=== PATIENT | female | born 1980 | race African-American/Black ===

== ENCOUNTER 2018-01-13 06:11 | Day surgery (SDC) | payer OTHER ==
[2018-01-13 07:28] VITALS: BMI 21.0
--- NOTE | 2018-01-13 07:32 | HP ---
Admitting History and Physical - Admission History of Present Illness: Patient is 37 y/o female with a past medical history of SLE, pancreatic insufficiency, sjoogrens disease, GERD, migraines, chronic pain, IBS, endometrosis, anxiety and depression. Patient was recently admitted to [facility] psychiatric unit for suicidal ideation and discharged on 01/05/18. Patient received 7 ECT during her inpatient stay at [place]. She has been referred by her psychiatrist to [facility] for continuation of her ECT. Patient reports ongoing depressive feelings, she denies any suicidal or homicidal ideation, visual or auditory hallucinations. Patient reports compliance with prescribed medications. History Source: Patient, Friend, Medical Record Limitations to Obtaining History: No Limitations - Past Medical History Gastrointestinal: Yes: GERD, Inflamatory Bowel Disease ...LMP: 01/10/18 ...: No Rheumatology: Yes: Lupus - Smoking History Smoking history: Current every day smoker Have you smoked in the past 12 months: Yes Aproximately how many cigarettes per day: 2 - Alcohol/Substance Use Hx Alcohol Use: Yes (RARELY) History of Substance Use: reports: Marijuana - Social History Usual Living Arrangement: Yes: Alone ADL: Independent Occupation: psychotherapist History of Recent Travel: No Home Medications - Allergies Allergies/Adverse Reactions: Allergies Allergy/AdvReac Type Severity Reaction Status Date / Time ibuprofen Allergy Severe Rash Verified 01/13/18 07:01 oxycodone AdvReac Severe Vomiting Verified 01/13/18 07:04 - Home Medications Home Medications: Ambulatory Orders Hydrocodone/Acetaminophen [Hydrocodon-Acetaminophn 10-325] 1 each PO ASDIR PRN 01/13/18 Hydroxychloroquine Sulfate [Plaquenil] 400 mg PO HS 01/13/18 Lamotrigine [Lamictal] 150 mg PO HS 01/13/18 Prednisone 10 mg PO DAILY 01/13/18 Quetiapine Fumarate [Seroquel -] 400 mg PO HS 01/13/18 Sumatriptan Succinate [Imitrex -] 50 mg PO ASDIR PRN 01/13/18 Venlafaxine HCl ER [Effexor Xr -] 225 mg PO DAILY 01/13/18 clonazePAM [Klonopin -] 0.5 mg PO ASDIR PRN 01/13/18 traZODone HCL [Trazodone HCl] 50 mg PO HS 01/13/18 Family Disease History - Family Disease History Family History: Denies Review of Systems - Review of Systems Constitutional: reports: No Symptoms Eyes: reports: No Symptoms HENT: reports: No Symptoms Neck: reports: No Symptoms Cardiovascular: reports: No Symptoms Respiratory: reports: No Symptoms Gastrointestinal: reports: No Symptoms Genitourinary: reports: No Symptoms Musculoskeletal: reports: No Symptoms Integumentary: reports: No Symptoms Neurological: reports: No Symptoms Endocrine: reports: No Symptoms Hematology/Lymphatic: reports: No Symptoms Psychiatric: reports: Depression Physical Examination Vital Signs: Vital Signs Temperature 98.1 F 01/13/18 07:13 Pulse Rate 99 H 01/13/18 07:13 Respiratory Rate 16 01/13/18 07:13 Blood Pressure 116/74 01/13/18 07:13 O2 Sat by Pulse Oximetry (%) 97 01/13/18 07:13 Constitutional: Yes: Well Nourished, No Distress, Calm Eyes: Yes: WNL, Conjunctiva Clear, EOM Intact HENT: Yes: WNL, Atraumatic, Normocephalic Neck: Yes: WNL, Supple, Trachea Midline Cardiovascular: Yes: WNL, Regular Rate and Rhythm, S1, S2 Respiratory: Yes: WNL, Regular, CTA Bilaterally Gastrointestinal: Yes: WNL, Normal Bowel Sounds, Soft ...Rectal Exam: Yes: Deferred Renal/: Yes: WNL Breast(s): Yes: WNL Musculoskeletal: Yes: WNL Extremities: Yes: WNL Edema: No Peripheral Pulses WNL: Yes Peripheral Pulses: Left Radial: 4+, Right Radial: 4+, Left Doralis Pedis: 3+, Right Dorsalis Pedis: 3+, Left Femoral: 3+, Right Femoral: 3+ Integumentary: Yes: WNL Neurological: Yes: WNL, Alert, Oriented ...Motor Strength: WNL Psychiatric: Yes: WNL, Alert, Oriented Labs: reviewed 12/28/17 Imaging - Results EKG: Image Reviewed, Other (nsr) Assessment/Plan patient is a 37 y/o female, that presents for ect, labs and ekg reviewed patient is medically optimized for procedure informed consent, risks/benefits to be obtained by Dr Keating
[2018-01-13] MEDS ORDERED: PROMETHAZINE HCL 25 MG/1 ML VIAL IVPUSH PRN (07:56)
[2018-01-13] MEDS ORDERED: ONDANSETRON 4 MG/2 ML VIAL IVPUSH PRN (07:56)
[2018-01-13] MEDS ORDERED: ACETAMINOPHEN 325 MG TABLET (FP) PO PRN (07:56)
[2018-01-13] MEDS ORDERED: LACTATED RINGERS SOLUTION 1,000 ML IV SCH (08:00)
[2018-01-13] MEDS ORDERED: KETAMINE HCL 500 MG/10 ML VIAL ONE (08:30)
[2018-01-13 09:00] VITALS: TEMP 98.5
[2018-01-13 09:56] VITALS: BP 130/76; PULSE 77
== END 2018-01-13 10:00 | disposition home or self-care (01) ==
LOC: FECT 06:11
PROVIDERS: ATTEND Psychiatry & Neurology Psychiatry
PROC: GZB4ZZZ Other Electroconvulsive Therapy (ICD-10-PCS; principal; 2018-01-13 07:30)
DX: F33.2 Major depressive disorder, recurrent severe without psychotic features (principal); M32.9 Systemic lupus erythematosus, unspecified; K21.9 Gastro-esophageal reflux disease without esophagitis; K58.9 Irritable bowel syndrome, unspecified
CPT/HCPCS: 84703

== ENCOUNTER 2018-01-16 05:51 | Day surgery (SDC) | payer OTHER ==
[2018-01-13 13:44] VITALS: BMI 21.0
[2018-01-16] MEDS ORDERED: KETAMINE HCL 500 MG/10 ML VIAL ONE (07:48)
[2018-01-16 08:49] VITALS: TEMP 98.6
[2018-01-16 09:06] VITALS: BP 115/76; PULSE 89
== END 2018-01-16 09:10 | disposition home or self-care (01) ==
LOC: FECT 05:51
PROVIDERS: ATTEND Psychiatry & Neurology Psychiatry
PROC: GZB4ZZZ Other Electroconvulsive Therapy (ICD-10-PCS; principal; 2018-01-16 08:30)
DX: F33.2 Major depressive disorder, recurrent severe without psychotic features (principal)
CPT/HCPCS: 90870; 94760

== ENCOUNTER 2018-01-18 05:44 | Day surgery (SDC) | payer OTHER ==
[2018-01-13 13:57] VITALS: BMI 21.0
[2018-01-18] MEDS ORDERED: KETAMINE HCL 500 MG/10 ML VIAL ONE (07:56)
[2018-01-18] MEDS ORDERED: ONDANSETRON 4 MG/2 ML VIAL IVPUSH PRN (09:03)
[2018-01-18] MEDS ORDERED: LACTATED RINGERS SOLUTION 1,000 ML IV SCH (09:15)
[2018-01-18 09:20] VITALS: TEMP 98.6
[2018-01-18 09:21] VITALS: BP 119/65; PULSE 81
== END 2018-01-18 09:15 | disposition home or self-care (01) ==
LOC: FECT 05:44
PROVIDERS: ATTEND Psychiatry & Neurology Psychiatry
PROC: GZB4ZZZ Other Electroconvulsive Therapy (ICD-10-PCS; principal; 2018-01-18 08:15)
DX: F33.2 Major depressive disorder, recurrent severe without psychotic features (principal)
CPT/HCPCS: 84703; 90870; 94760

== ENCOUNTER 2018-01-20 05:43 | Day surgery (SDC) | payer OTHER ==
[2018-01-16 13:48] VITALS: BMI 21.0
[2018-01-20] MEDS ORDERED: KETAMINE HCL 500 MG/10 ML VIAL ONE (07:46)
[2018-01-20 09:39] VITALS: BP 112/66; PULSE 84
[2018-01-20 09:49] VITALS: TEMP 98.2
== END 2018-01-20 09:35 | disposition home or self-care (01) ==
LOC: FECT 05:43
PROVIDERS: ATTEND Psychiatry & Neurology Psychiatry
PROC: GZB4ZZZ Other Electroconvulsive Therapy (ICD-10-PCS; principal; 2018-01-20 08:30)
DX: F33.2 Major depressive disorder, recurrent severe without psychotic features (principal)
CPT/HCPCS: 90870; 94760

== ENCOUNTER 2018-01-23 05:50 | Day surgery (SDC) | payer OTHER ==
[2018-01-23 07:28] VITALS: BMI 21.0
[2018-01-23] MEDS ORDERED: KETAMINE HCL 500 MG/10 ML VIAL ONE (08:07)
[2018-01-23 09:11] VITALS: TEMP 98.8
[2018-01-23 09:20] VITALS: BP 121/71; PULSE 89
== END 2018-01-23 09:25 | disposition home or self-care (01) ==
LOC: FECT 05:50
PROVIDERS: ATTEND Psychiatry & Neurology Psychiatry
PROC: GZB4ZZZ Other Electroconvulsive Therapy (ICD-10-PCS; principal; 2018-01-23 08:15)
DX: F33.2 Major depressive disorder, recurrent severe without psychotic features (principal)
CPT/HCPCS: 84703; 90870; 94760

== ENCOUNTER 2018-02-03 05:53 | Day surgery (SDC) | payer OTHER ==
[2018-02-03 08:28] VITALS: BMI 21.0
[2018-02-03] MEDS ORDERED: KETAMINE HCL 500 MG/10 ML VIAL ONE (08:57)
[2018-02-03 10:01] VITALS: PULSE 88; TEMP 98.7
[2018-02-03 10:20] VITALS: BP 116/68
== END 2018-02-03 10:10 | disposition home or self-care (01) ==
LOC: FECT 05:53
PROVIDERS: ATTEND Psychiatry & Neurology Psychiatry
PROC: GZB4ZZZ Other Electroconvulsive Therapy (ICD-10-PCS; principal; 2018-02-03 08:45)
DX: F33.2 Major depressive disorder, recurrent severe without psychotic features (principal)
CPT/HCPCS: 84703; 90870; 94760

== ENCOUNTER 2018-02-09 05:49 | Day surgery (SDC) | payer OTHER ==
[2018-02-03 14:19] VITALS: BMI 21.0
[2018-02-09] MEDS ORDERED: KETAMINE HCL 500 MG/10 ML VIAL ONE (08:00)
[2018-02-09 09:52] VITALS: BP 121/67; PULSE 67; TEMP 98
== END 2018-02-09 09:30 | disposition home or self-care (01) ==
LOC: FECT 05:49
PROVIDERS: ATTEND Psychiatry & Neurology Psychiatry
PROC: GZB4ZZZ Other Electroconvulsive Therapy (ICD-10-PCS; principal; 2018-02-09 08:00)
DX: F32.9 Major depressive disorder, single episode, unspecified (principal)
CPT/HCPCS: 84703; 90870; 94760

== ENCOUNTER 2018-02-15 05:50 | Day surgery (SDC) | payer OTHER ==
[2018-02-10 15:47] VITALS: BMI 21.0
--- NOTE | 2018-02-15 07:54 | HP ---
CHIEF COMPLAINT: Major Depressive Disorder PCP: Dr. Cabral Loring Primary psychiatrist: Dr. Ascencio [facility] HISTORY OF PRESENT ILLNESS: 37 year-old female with a PMH significant for SLE, pancreatic insufficiency, Sjogrens disease, GERD, migraines, chronic pain, IBS, endometrosis, and major depressive disorder. Patient was recently admitted to [place] psychiatric unit for suicidal ideation and discharged on 01/05/18. Patient received 7 ECT during her inpatient stay at [place] and has continued here at [place] as an outpatient. Patient reports today she does not think the treatments are effective, she continues to have have suicidal ideation and the urge to cut. Patient has been given the Suicide Risk Assessment Screening Tool. She has no suicidal plan. Events since last ECT: Olanzapine has been added at bedtime; patient does not know the dose; tolerating well LMP 02/10/18 PAST MEDICAL HISTORY: SLE Pancreatic insufficiency Sjogrens disease GERD Migraines Chronic pain IBS Endometriosis Major Depressive Disorder PAST SURGICAL HISTORY: None reported Social History: Smoking: vapes Alcohol:no Drugs: marijuana Family History: Father age 75 h/o [place], HTN; mother 72 kidney issues; brother age 46 a&w Allergies ibuprofen Allergy (Severe, Verified 02/10/18 15:43) Rash oxycodone Adverse Reaction (Severe, Verified 02/10/18 15:43) Vomiting HOME MEDICATIONS: Home Medications Medication Instructions Recorded Dicyclomine HCl [Bentyl -] 20 mg PO BID 01/13/18 Hydrocodone/Acetaminophen 1 each PO ASDIR PRN 01/13/18 [Hydrocodone-Acetamin 10-325 mg] Hydroxychloroquine Sulfate 400 mg PO HS 01/13/18 [Plaquenil] Prednisone 10 mg PO DAILY 01/13/18 Quetiapine Fumarate [Seroquel -] 400 mg PO HS 01/13/18 Sumatriptan Succinate [Imitrex -] 50 mg PO ASDIR PRN 01/13/18 Venlafaxine HCl ER [Effexor Xr -] 300 mg PO DAILY 01/13/18 Lamotrigine [Lamictal] 200 mg PO HS 02/03/18 REVIEW OF SYSTEMS CONSTITUTIONAL: Absent: fever, chills, diaphoresis, generalized weakness, malaise, loss of appetite, weight change HEENT: Absent: rhinorrhea, nasal congestion, throat pain, throat swelling, difficulty swallowing, mouth swelling, ear pain, eye pain, visual changes CARDIOVASCULAR: Absent: chest pain, syncope, palpitations, irregular heart rate, lightheadedness , peripheral edema RESPIRATORY: Absent: cough, shortness of breath, dyspnea with exertion, orthopnea, wheezing, stridor, hemoptysis GASTROINTESTINAL: Absent: abdominal pain, abdominal distension, nausea, vomiting, diarrhea, constipation, melena, hematochezia GENITOURINARY: Absent: dysuria, frequency, urgency, hesitancy, hematuria, flank pain, genital pain MUSCULOSKELETAL: Absent: myalgia, arthralgia, joint swelling, back pain, neck pain SKIN: Absent: rash, itching, pallor HEMATOLOGIC/IMMUNOLOGIC: Absent: easy bleeding, easy bruising, lymphadenopathy, frequent infections ENDOCRINE: Absent: unexplained weight gain, unexplained weight loss, heat intolerance, cold intolerance NEUROLOGIC: Absent: headache, focal weakness or paresthesias, dizziness, unsteady gait, seizure, mental status changes, bladder or bowel incontinence PHYSICAL EXAMINATION GENERAL: Awake, alert, and fully oriented, in no acute distress. LUNGS: Breath sounds equal, clear to auscultation bilaterally. No wheezes, and no crackles. No accessory muscle use. HEART: Regular rate and rhythm, normal S1 and S2 without murmur, rub or gallop. ABDOMEN: Soft, nontender, not distended, normoactive bowel sounds, no guarding, no rebound, no masses. No hepatomegaly or splenomegaly. MUSCULOSKELETAL: Normal range of motion at all joints. No bony deformities or tenderness. No CVA tenderness. UPPER EXTREMITIES: 2+ pulses, warm, well-perfused. No cyanosis. No clubbing. No peripheral edema. LOWER EXTREMITIES: 2+ pulses, warm, well-perfused. No calf tenderness. No peripheral edema. NEUROLOGICAL: Cranial nerves II-XII intact. Normal speech. ASSESSMENT/PLAN: 37 year-old female with a PMH significant for SLE, pancreatic insufficiency, Sjogrens disease, GERD, migraines, chronic pain, IBS, endometrosis, and major depressive disorder. Presents today for ECT. Cardiac --no cardiac history --Revised Cardiac Risk Index for Pre-Operative Risk: 0 points, 0.4% risk of major cardiac event Pulmonary --no pulmonary history Neurological --no neurological or neurosurgical history; no history of trauma Anesthesia --no known history of problems with anesthesia ECT is a low risk procedure. The relative benefits of the planned procedure outweigh the relative risks for this patient at this time. Visit type - Emergency Visit Emergency Visit: No - New Patient This patient is new to me today: Yes Date on this admission: 02/15/18 - Critical Care Critical Care patient: No
[2018-02-15] MEDS ORDERED: KETAMINE HCL 500 MG/10 ML VIAL ONE (09:10)
[2018-02-15 11:06] VITALS: TEMP 97.9
[2018-02-15 11:16] VITALS: BP 117/78; PULSE 89
== END 2018-02-15 10:35 | disposition home or self-care (01) ==
LOC: FECT 05:50
PROVIDERS: ATTEND Psychiatry & Neurology Psychiatry
PROC: GZB4ZZZ Other Electroconvulsive Therapy (ICD-10-PCS; principal; 2018-02-15 08:00)
DX: F33.2 Major depressive disorder, recurrent severe without psychotic features (principal)
CPT/HCPCS: 84703; 90870; 94760

== ENCOUNTER 2018-02-20 08:12 | Day surgery (SDC) | payer OTHER ==
[2018-02-15 13:46] VITALS: BMI 21.0
[2018-02-20] MEDS ORDERED: KETAMINE HCL 500 MG/10 ML VIAL ONE (08:51)
[2018-02-20 09:56] VITALS: BP 149/96; PULSE 70; TEMP 98.4
== END 2018-02-20 10:15 | disposition home or self-care (01) ==
LOC: FECT 08:12
PROVIDERS: ATTEND Psychiatry & Neurology Psychiatry
PROC: GZB4ZZZ Other Electroconvulsive Therapy (ICD-10-PCS; principal; 2018-02-20 08:30)
DX: F33.2 Major depressive disorder, recurrent severe without psychotic features (principal)
CPT/HCPCS: 84703; 90870; 94760

== ENCOUNTER 2018-02-24 05:47 | Day surgery (SDC) | payer OTHER ==
[2018-02-20 11:10] VITALS: BMI 21.0
[2018-02-24] MEDS ORDERED: KETAMINE HCL 500 MG/10 ML VIAL ONE (07:54)
[2018-02-24] MEDS ORDERED: ACETAMINOPHEN 325 MG TABLET (FP) PO ONE (08:06)
[2018-02-24 08:49] VITALS: TEMP 98.2
[2018-02-24 09:16] VITALS: BP 100/66; PULSE 83
== END 2018-02-24 09:15 | disposition home or self-care (01) ==
LOC: FECT 05:47
PROVIDERS: ATTEND Psychiatry & Neurology Psychiatry
PROC: GZB4ZZZ Other Electroconvulsive Therapy (ICD-10-PCS; principal; 2018-02-24 07:30)
DX: F33.2 Major depressive disorder, recurrent severe without psychotic features (principal)
CPT/HCPCS: 84703; 90870; 94760

== ENCOUNTER 2018-03-02 05:46 | Day surgery (SDC) | payer OTHER ==
[~2018-03-02 05:46] MED LIST: ONDANSETRON 4 MG/2 ML VIAL IVPUSH PRN
[2018-03-02 07:10] VITALS: BMI 21.5
[2018-03-02] MEDS ORDERED: KETAMINE HCL 500 MG/10 ML VIAL ONE (07:50)
[2018-03-02 09:35] VITALS: TEMP 98.7
[2018-03-02 09:36] VITALS: BP 120/86; PULSE 90
== END 2018-03-02 09:25 | disposition home or self-care (01) ==
LOC: FECT 05:46
PROVIDERS: ATTEND Psychiatry & Neurology Psychiatry
PROC: GZB4ZZZ Other Electroconvulsive Therapy (ICD-10-PCS; principal; 2018-03-02 08:00)
DX: F33.2 Major depressive disorder, recurrent severe without psychotic features (principal)
CPT/HCPCS: 84703; 90870; 94760

== ENCOUNTER 2018-03-06 05:46 | Day surgery (SDC) | payer OTHER ==
[2018-03-03 15:43] VITALS: BMI 21.5
[2018-03-06] MEDS ORDERED: KETAMINE HCL 500 MG/10 ML VIAL ONE (07:24)
[2018-03-06 08:48] VITALS: BP 133/86; PULSE 88; TEMP 98.8
== END 2018-03-06 08:46 | disposition home or self-care (01) ==
LOC: FECT 05:46
PROVIDERS: ATTEND Psychiatry & Neurology Psychiatry
PROC: GZB4ZZZ Other Electroconvulsive Therapy (ICD-10-PCS; principal; 2018-03-06 08:00)
DX: F32.9 Major depressive disorder, single episode, unspecified (principal)
CPT/HCPCS: 84703; 90870; 94760

== ENCOUNTER 2018-03-09 05:44 | Day surgery (SDC) | payer OTHER ==
[2018-03-09 07:16] VITALS: BMI 21.5
[2018-03-09] MEDS ORDERED: KETAMINE HCL 500 MG/10 ML VIAL ONE (07:30)
[2018-03-09 08:59] VITALS: TEMP 98.7
[2018-03-09 09:08] VITALS: BP 118/78; PULSE 89
[2018-03-09] MEDS ORDERED: ONDANSETRON 4 MG/2 ML VIAL IVPUSH PRN (10:03)
[2018-03-09] MEDS ORDERED: LACTATED RINGERS SOLUTION 1,000 ML IV SCH (10:15)
== END 2018-03-09 09:10 | disposition home or self-care (01) ==
LOC: FECT 05:44
PROVIDERS: ATTEND Psychiatry & Neurology Psychiatry
PROC: GZB4ZZZ Other Electroconvulsive Therapy (ICD-10-PCS; principal; 2018-03-09 07:15)
DX: F33.2 Major depressive disorder, recurrent severe without psychotic features (principal)
CPT/HCPCS: 90870; 94760

== ENCOUNTER 2018-03-14 05:52 | Day surgery (SDC) | payer OTHER ==
[2018-03-09 16:48] VITALS: BMI 21.5
[2018-03-14] MEDS ORDERED: KETAMINE HCL 500 MG/10 ML VIAL ONE (08:54)
[2018-03-14 10:13] VITALS: TEMP 98.5
[2018-03-14 10:35] VITALS: BP 128/72; PULSE 81
== END 2018-03-14 10:38 | disposition home or self-care (01) ==
LOC: FECT 05:52
PROVIDERS: ATTEND Psychiatry & Neurology Psychiatry
PROC: GZB4ZZZ Other Electroconvulsive Therapy (ICD-10-PCS; principal; 2018-03-14 08:15)
DX: F33.2 Major depressive disorder, recurrent severe without psychotic features (principal)
CPT/HCPCS: 84703; 90870; 94760

== ENCOUNTER 2018-03-17 05:45 | Day surgery (SDC) | payer OTHER ==
[2018-03-17 07:55] VITALS: BMI 21.0
[2018-03-17] MEDS ORDERED: KETAMINE HCL 500 MG/10 ML VIAL ONE (08:31)
[2018-03-17] MEDS ORDERED: ONDANSETRON 4 MG/2 ML VIAL IVPUSH PRN (08:40)
[2018-03-17] MEDS ORDERED: ACETAMINOPHEN 325 MG TABLET (FP) PO PRN (08:40)
[2018-03-17] MEDS ORDERED: LACTATED RINGERS SOLUTION 1,000 ML IV SCH (08:45)
[2018-03-17 09:54] VITALS: TEMP 98.6
[2018-03-17 10:09] VITALS: BP 130/97; PULSE 88
[2018-03-17] MEDS ORDERED: guaiFENesin 200 MG/10 ML 10 ML UNIT-DOSE CUPS PO ONE (10:15)
== END 2018-03-17 09:55 | disposition home or self-care (01) ==
LOC: FECT 05:45
PROVIDERS: ATTEND Psychiatry & Neurology Psychiatry
PROC: GZB4ZZZ Other Electroconvulsive Therapy (ICD-10-PCS; principal; 2018-03-17 08:00)
DX: F33.2 Major depressive disorder, recurrent severe without psychotic features (principal)
CPT/HCPCS: 90870; 94760

== ENCOUNTER 2018-03-23 05:47 | Day surgery (SDC) | payer OTHER ==
[2018-03-20 11:28] VITALS: BMI 21.0
--- NOTE | 2018-03-23 08:18 | HP ---
CHIEF COMPLAINT: Major Depressive Disorder PCP: Dr. Cabral Armona Primary psychiatrist: Dr. Ascencio [facility] HISTORY OF PRESENT ILLNESS: 37 year-old female with a PMH significant for SLE, pancreatic insufficiency, Sjogrens disease, GERD, migraines, chronic pain, IBS, endometrosis, and major depressive disorder. Patient began ECT in December 2017. She presents today for ECT. Recent events * During previous ECT 3 weeks ago, bit down on tongue with resulting swelling and laceration; was placed on augmentin x 10 days by PCP * Abilify was added to morning meds, tolerating well PAST MEDICAL HISTORY: SLE Pancreatic insufficiency Sjogrens disease GERD Migraines Chronic pain IBS Endometriosis Major Depressive Disorder PAST SURGICAL HISTORY: None reported Social History: Smoking: vapes Alcohol:no Drugs: marijuana Allergies ibuprofen Allergy (Severe, Verified 03/17/18 07:49) Rash HOME MEDICATIONS: Home Medications Medication Instructions Recorded Dicyclomine HCl [Bentyl -] 20 mg PO HS 01/13/18 Hydroxychloroquine Sulfate 400 mg PO HS 01/13/18 [Plaquenil] Quetiapine Fumarate [Seroquel -] 400 mg PO HS 01/13/18 Sumatriptan Succinate [Imitrex -] 50 mg PO ASDIR PRN 01/13/18 Venlafaxine HCl ER [Effexor Xr -] 300 mg PO DAILY 01/13/18 Lamotrigine [Lamictal] 200 mg PO HS 02/03/18 Rizatriptan Benzoate [Maxalt] 10 mg PO ASDIR PRN 02/15/18 Pramipexole Di-HCl [Mirapex] 0.25 mg PO HS PRN 03/06/18 Aripiprazole [Abilify] 5 mg PO DAILY 03/14/18 REVIEW OF SYSTEMS CONSTITUTIONAL: Absent: fever, chills, diaphoresis, generalized weakness, malaise, loss of appetite, weight change HEENT: Absent: rhinorrhea, nasal congestion, throat pain, throat swelling, difficulty swallowing, mouth swelling, ear pain, eye pain, visual changes CARDIOVASCULAR: Absent: chest pain, syncope, palpitations, irregular heart rate, lightheadedness , peripheral edema RESPIRATORY: Absent: cough, shortness of breath, dyspnea with exertion, orthopnea, wheezing, stridor, hemoptysis GASTROINTESTINAL: Absent: abdominal pain, abdominal distension, nausea, vomiting, diarrhea, constipation, melena, hematochezia GENITOURINARY: Absent: dysuria, frequency, urgency, hesitancy, hematuria, flank pain, genital pain MUSCULOSKELETAL: Absent: myalgia, arthralgia, joint swelling, back pain, neck pain SKIN: Absent: rash, itching, pallor HEMATOLOGIC/IMMUNOLOGIC: Absent: easy bleeding, easy bruising, lymphadenopathy, frequent infections ENDOCRINE: Absent: unexplained weight gain, unexplained weight loss, heat intolerance, cold intolerance NEUROLOGIC: Absent: headache, focal weakness or paresthesias, dizziness, unsteady gait, seizure, mental status changes, bladder or bowel incontinence PHYSICAL EXAMINATION GENERAL: Awake, alert, and fully oriented, in no acute distress. HEAD: Normal with no signs of trauma. MOUTH: Tongue appears wnl, no swelling, no lesions, no lacerations EYES: Pupils equal, round and reactive to light, sclera anicteric, conjunctiva clear. LUNGS: Breath sounds equal, clear to auscultation bilaterally. No wheezes, and no crackles. No accessory muscle use. HEART: Regular rate and rhythm, normal S1 and S2 ABDOMEN: Soft, nontender, not distended MUSCULOSKELETAL: Normal range of motion at all joints. No bony deformities or tenderness. No CVA tenderness. UPPER EXTREMITIES: 2+ pulses, warm, well-perfused. No cyanosis. No clubbing. No peripheral edema. LOWER EXTREMITIES: 2+ pulses, warm, well-perfused. No calf tenderness. No peripheral edema. NEUROLOGICAL: Cranial nerves II-XII intact. Normal speech. Laboratory Results - last 24 hr 03/23/18 03/23/18 03/23/18 08:00 08:40 08:40 WBC 8.4 RBC 4.20 Hgb 12.2 Hct 37.5 MCV 89.2 MCH 29.0 MCHC 32.5 RDW 14.8 Plt Count 299 MPV 7.5 Absolute Neuts (auto) 5.5 Neutrophils % 65.2 Lymphocytes % 20.5 Monocytes % 9.0 Eosinophils % 2.7 Basophils % 2.6 H Sodium 137 Potassium 4.3 Chloride 106 Carbon Dioxide 26 Anion Gap 5 L BUN 12 Creatinine 0.8 Creat Clearance w eGFR > 60 Random Glucose 88 Calcium 9.2 Magnesium 1.8 Total Bilirubin 0.4 AST 17 ALT 13 Alkaline Phosphatase 46 Total Protein 7.3 Albumin 4.0 Urine HCG, Qual Negative ASSESSMENT/PLAN: 37 year-old female with a PMH significant for SLE, pancreatic insufficiency, Sjogrens disease, GERD, migraines, chronic pain, IBS, endometrosis, and major depressive disorder. She presents today for ECT. ID --tongue laceration 3 weeks ago in connection with ECT, was treated with augmentin, course complete --repeat labs this morning: cbc, cmp, Mg --labs reviewed, WBC wnl; afebrile Cardiac --no cardiac history --Revised Cardiac Risk Index for Pre-Operative Risk: 0 points, 0.4% risk of major cardiac event Pulmonary --no pulmonary history Neurological --no neurological or neurosurgical history; no history of trauma Anesthesia --no reported problems with anesthesia ECT is a low risk procedure. The relative benefits of the planned procedure outweigh the relative risks for this patient at this time. Visit type - Emergency Visit Emergency Visit: No - New Patient This patient is new to me today: Yes Date on this admission: 03/23/18 - Critical Care Critical Care patient: No
[2018-03-23 08:49] LABS: BASO % 2.6 % (0-2.0); EOS % 2.7 % (0-4.5); HEMATOCRIT 37.5 % (32.4-45.2); HEMOGLOBIN 12.2 GM/dl (10.7-15.3); LYMPH % 20.5 % (8-40); MCHC 32.5 g/dl (32.0-36.0); MEAN CELL VOLUME 89.2 fl (80-96); MEAN PLT VOLUME 7.5 fl (7.5-11.1); NEUT % 65.2 % (42.8-82.8); PLATELET COUNT 299 K/MM3 (134-434); RDW 14.8 % (11.6-15.6); WHITE BLOOD COUNT 8.4 K/mm3 (4.0-10.8)
[2018-03-23 09:07] LABS: ALK PHOS 46 U/L (32-92); ANION GAP 5 MMOL/L (8-16); BILIRUBIN,TOTAL 0.4 mg/dl (0.2-1.0); BLOOD UREA NITROGEN 12 mg/dl (7-18); CALCIUM 9.2 mg/dl (8.4-10.2); CHLORIDE 106 mmol/L (98-107); CO2 26 mmol/L (22-28); CREATININE 0.8 mg/dl (0.6-1.3); GLUCOSE,RANDOM 88 mg/dl (74-106); MAGNESIUM 1.8 mg/dL (1.8-2.4); POTASSIUM 4.3 mmol/L (3.5-5.1); SGOT/AST 17 U/L (10-42); SGPT/ALT 13 U/L (10-40); SODIUM 137 mmol/L (136-145); TOT PROT 7.3 g/dl (6.4-8.3)
[2018-03-23] MEDS ORDERED: KETAMINE HCL 500 MG/10 ML VIAL ONE (09:19)
[2018-03-23 10:59] VITALS: TEMP 98.4
[2018-03-23 11:01] VITALS: BP 126/72; PULSE 81
== END 2018-03-23 11:03 | disposition home or self-care (01) ==
LOC: FECT 05:47
PROVIDERS: ATTEND Psychiatry & Neurology Psychiatry
PROC: GZB4ZZZ Other Electroconvulsive Therapy (ICD-10-PCS; principal; 2018-03-23 08:00)
DX: F33.2 Major depressive disorder, recurrent severe without psychotic features (principal)
CPT/HCPCS: 36415; 80053; 83735; 84703; 85025; 90870; 94760

== ENCOUNTER 2018-03-30 05:56 | Day surgery (SDC) | payer OTHER ==
[2018-03-30 07:30] VITALS: BMI 21.0
[2018-03-30] MEDS ORDERED: KETAMINE HCL 500 MG/10 ML VIAL ONE (08:51)
[2018-03-30 10:03] VITALS: TEMP 98.8
[2018-03-30 10:18] VITALS: BP 122/82; PULSE 90
== END 2018-03-30 10:21 | disposition home or self-care (01) ==
LOC: FECT 05:56
PROVIDERS: ATTEND Psychiatry & Neurology Psychiatry
PROC: GZB4ZZZ Other Electroconvulsive Therapy (ICD-10-PCS; principal; 2018-03-30 08:45)
DX: F33.2 Major depressive disorder, recurrent severe without psychotic features (principal)
CPT/HCPCS: 84703; 90870; 94760

== ENCOUNTER 2018-04-03 08:10 | Day surgery (SDC) | payer OTHER ==
[2018-04-03 08:41] VITALS: BMI 21.0
[2018-04-03] MEDS ORDERED: KETAMINE HCL 500 MG/10 ML VIAL ONE (09:49)
[2018-04-03] MEDS ORDERED: ONDANSETRON 4 MG/2 ML VIAL IVPUSH PRN (10:19)
[2018-04-03] MEDS ORDERED: ACETAMINOPHEN 325 MG TABLET (FP) PO PRN (10:19)
[2018-04-03] MEDS ORDERED: LACTATED RINGERS SOLUTION 1,000 ML IV SCH (10:30)
[2018-04-03 10:46] VITALS: TEMP 98.8
[2018-04-03 12:14] VITALS: BP 132/78; PULSE 84
== END 2018-04-03 11:15 | disposition home or self-care (01) ==
LOC: FECT 08:10
PROVIDERS: ATTEND Psychiatry & Neurology Psychiatry
PROC: GZB4ZZZ Other Electroconvulsive Therapy (ICD-10-PCS; principal; 2018-04-03 08:45)
DX: F32.9 Major depressive disorder, single episode, unspecified (principal)
CPT/HCPCS: 84703; 90870; 94760

== ENCOUNTER 2018-04-06 05:53 | Day surgery (SDC) | payer OTHER ==
[2018-04-06 07:25] VITALS: BMI 22.1
[2018-04-06] MEDS ORDERED: KETAMINE HCL SYRINGES 150 MG/3 ML VIAL ONE (07:53)
[2018-04-06 08:57] VITALS: TEMP 99.3
[2018-04-06 09:18] VITALS: BP 131/70; PULSE 86
== END 2018-04-06 09:30 | disposition home or self-care (01) ==
LOC: FECT 05:53
PROVIDERS: ATTEND Psychiatry & Neurology Psychiatry
PROC: GZB4ZZZ Other Electroconvulsive Therapy (ICD-10-PCS; principal; 2018-04-06 08:00)
DX: F33.2 Major depressive disorder, recurrent severe without psychotic features (principal)
CPT/HCPCS: 90870; 94760

== ENCOUNTER 2018-04-10 05:53 | Day surgery (SDC) | payer OTHER ==
[2018-04-10 07:55] VITALS: BMI 22.1
[2018-04-10] MEDS ORDERED: KETAMINE HCL 500 MG/10 ML VIAL ONE (08:33)
[2018-04-10 09:31] VITALS: TEMP 98.6
[2018-04-10] MEDS ORDERED: ONDANSETRON 4 MG/2 ML VIAL IVPUSH PRN (09:40)
[2018-04-10] MEDS ORDERED: PROMETHAZINE HCL 25 MG/1 ML VIAL IVPB PRN (09:40)
[2018-04-10] MEDS ORDERED: ACETAMINOPHEN 325 MG TABLET (FP) PO PRN (09:40)
[2018-04-10] MEDS ORDERED: LACTATED RINGERS SOLUTION 1,000 ML IV SCH (09:45)
[2018-04-10 10:08] VITALS: BP 133/81; PULSE 88
== END 2018-04-10 10:05 | disposition home or self-care (01) ==
LOC: FECT 05:53
PROVIDERS: ATTEND Psychiatry & Neurology Psychiatry
PROC: GZB4ZZZ Other Electroconvulsive Therapy (ICD-10-PCS; principal; 2018-04-10 08:15)
DX: F33.2 Major depressive disorder, recurrent severe without psychotic features (principal)
CPT/HCPCS: 84703; 90870; 94760

== ENCOUNTER 2018-04-13 05:45 | Day surgery (SDC) | payer OTHER ==
[2018-04-10 10:57] VITALS: BMI 22.1
[2018-04-13] MEDS ORDERED: ONDANSETRON 4 MG/2 ML VIAL IVPUSH PRN (07:06)
[2018-04-13] MEDS ORDERED: KETAMINE HCL SYRINGES 150 MG/3 ML VIAL ONE (07:42)
[2018-04-13 09:01] VITALS: TEMP 98.1
[2018-04-13 09:08] VITALS: BP 118/81; PULSE 86
== END 2018-04-13 09:10 | disposition home or self-care (01) ==
LOC: FECT 05:45
PROVIDERS: ATTEND Psychiatry & Neurology Psychiatry
PROC: GZB4ZZZ Other Electroconvulsive Therapy (ICD-10-PCS; principal; 2018-04-13 08:00)
DX: F33.2 Major depressive disorder, recurrent severe without psychotic features (principal)
CPT/HCPCS: 90870; 94760

== ENCOUNTER 2018-04-17 05:51 | Day surgery (SDC) | payer OTHER ==
[2018-04-17 07:25] VITALS: BMI 22.1
[2018-04-17] MEDS ORDERED: KETAMINE HCL 500 MG/10 ML VIAL ONE (08:25)
[2018-04-17 09:40] VITALS: TEMP 99
[2018-04-17 11:08] VITALS: BP 120/78; PULSE 82
== END 2018-04-17 10:00 | disposition home or self-care (01) ==
LOC: FECT 05:51
PROVIDERS: ATTEND Psychiatry & Neurology Psychiatry
PROC: GZB4ZZZ Other Electroconvulsive Therapy (ICD-10-PCS; principal; 2018-04-17 08:30)
DX: F33.2 Major depressive disorder, recurrent severe without psychotic features (principal)
CPT/HCPCS: 84703; 90870; 94760

== ENCOUNTER 2018-04-20 05:50 | Day surgery (SDC) | payer OTHER ==
[2018-04-20 07:34] VITALS: BMI 22.1
[2018-04-20] MEDS ORDERED: KETAMINE HCL SYRINGES 150 MG/3 ML VIAL ONE (08:36)
[2018-04-20 10:07] VITALS: TEMP 98.6
[2018-04-20 10:09] VITALS: BP 120/79; PULSE 84
== END 2018-04-20 10:00 | disposition home or self-care (01) ==
LOC: FECT 05:50
PROVIDERS: ATTEND Psychiatry & Neurology Psychiatry
PROC: GZB4ZZZ Other Electroconvulsive Therapy (ICD-10-PCS; principal; 2018-04-20 08:00)
DX: F33.2 Major depressive disorder, recurrent severe without psychotic features (principal)
CPT/HCPCS: 90870; 94760

== ENCOUNTER 2018-04-25 05:49 | Day surgery (SDC) | payer OTHER ==
[2018-04-24 08:00] VITALS: BMI 22.1
[2018-04-25 07:52] VITALS: TEMP 98.1
[2018-04-25] MEDS ORDERED: KETAMINE HCL SYRINGES 150 MG/3 ML ONE (08:22)
[2018-04-25] MEDS ORDERED: ACETAMINOPHEN 325 MG TABLET (FP) PO PRN (08:49)
[2018-04-25] MEDS ORDERED: ONDANSETRON 4 MG/2 ML VIAL IVPUSH PRN (08:49)
[2018-04-25 09:50] VITALS: BP 122/82; PULSE 77
== END 2018-04-25 09:40 | disposition home or self-care (01) ==
LOC: FECT 05:49
PROVIDERS: ATTEND Psychiatry & Neurology Psychiatry
PROC: GZB4ZZZ Other Electroconvulsive Therapy (ICD-10-PCS; principal; 2018-04-25 08:00)
DX: F32.9 Major depressive disorder, single episode, unspecified (principal)
CPT/HCPCS: 84703; 90870; 94760

== ENCOUNTER 2018-05-08 05:51 | Day surgery (SDC) | payer OTHER ==
[2018-05-05 14:58] VITALS: BMI 22.1
[2018-05-08] MEDS ORDERED: KETAMINE HCL 500 MG/10 ML VIAL ONE (07:41)
--- NOTE | 2018-05-08 07:41 | HP ---
CHIEF COMPLAINT: Major Depressive Disorder PCP: Dr. Cabral Dudley Primary psychiatrist: Dr. Ascencio [facility] HISTORY OF PRESENT ILLNESS: 37 year-old female with a PMH significant for SLE, pancreatic insufficiency, Sjogrens disease, GERD, migraines, chronic pain, IBS, endometrosis, and major depressive disorder. Patient began ECT in December 2017. She presents today for ECT. Recent events * Added Remeron 50mg qhs * Discontinued Abilify PAST MEDICAL HISTORY: SLE Pancreatic insufficiency Sjogrens disease GERD Migraines Chronic pain IBS Endometriosis Major Depressive Disorder PAST SURGICAL HISTORY: None reported Social History: Smoking: vapes Alcohol:no Drugs: marijuana Allergies ibuprofen Allergy (Severe, Verified 04/24/18 07:59) Rash HOME MEDICATIONS: Home Medications Medication Instructions Recorded Dicyclomine HCl [Bentyl -] 20 mg PO HS 01/13/18 Hydroxychloroquine Sulfate 400 mg PO HS 01/13/18 [Plaquenil] Quetiapine Fumarate [Seroquel -] 400 mg PO HS 01/13/18 Sumatriptan Succinate [Imitrex -] 50 mg PO ASDIR PRN 01/13/18 Venlafaxine HCl ER [Effexor Xr -] 300 mg PO DAILY 01/13/18 Lamotrigine [Lamictal] 200 mg PO HS 02/03/18 Rizatriptan Benzoate [Maxalt] 10 mg PO ASDIR PRN 02/15/18 Pramipexole Di-HCl [Mirapex] 0.25 mg PO HS PRN 03/06/18 Mirtazapine [Remeron -] 15 mg PO HS 05/08/18 REVIEW OF SYSTEMS CONSTITUTIONAL: Absent: fever, chills, diaphoresis, generalized weakness, malaise, loss of appetite, weight change HEENT: Absent: rhinorrhea, nasal congestion, throat pain, throat swelling, difficulty swallowing, mouth swelling, ear pain, eye pain, visual changes CARDIOVASCULAR: Absent: chest pain, syncope, palpitations, irregular heart rate, lightheadedness , peripheral edema RESPIRATORY: Absent: cough, shortness of breath, dyspnea with exertion, orthopnea, wheezing, stridor, hemoptysis GASTROINTESTINAL: Absent: abdominal pain, abdominal distension, nausea, vomiting, diarrhea, constipation, melena, hematochezia GENITOURINARY: Absent: dysuria, frequency, urgency, hesitancy, hematuria, flank pain, genital pain MUSCULOSKELETAL: Absent: myalgia, arthralgia, joint swelling, back pain, neck pain SKIN: Absent: rash, itching, pallor HEMATOLOGIC/IMMUNOLOGIC: Absent: easy bleeding, easy bruising, lymphadenopathy, frequent infections ENDOCRINE: Absent: unexplained weight gain, unexplained weight loss, heat intolerance, cold intolerance NEUROLOGIC: Absent: headache, focal weakness or paresthesias, dizziness, unsteady gait, seizure, mental status changes, bladder or bowel incontinence PHYSICAL EXAMINATION Vital Signs - 24 hr 05/08/18 07:00 Temperature 97.7 F Pulse Rate 84 Respiratory 18 Rate Blood Pressure 115/71 O2 Sat by Pulse 96 Oximetry (%) GENERAL: Awake, alert, and fully oriented, in no acute distress. HEAD: Normal with no signs of trauma. EYES: Pupils equal, round and reactive to light, sclera anicteric, conjunctiva clear. LUNGS: Breath sounds equal, clear to auscultation bilaterally. No wheezes, and no crackles. No accessory muscle use. HEART: Regular rate and rhythm, normal S1 and S2 ABDOMEN: Soft, nontender, not distended MUSCULOSKELETAL: Normal range of motion at all joints. No bony deformities or tenderness. No CVA tenderness. UPPER EXTREMITIES: 2+ pulses, warm, well-perfused. No cyanosis. No clubbing. No peripheral edema. LOWER EXTREMITIES: 2+ pulses, warm, well-perfused. No calf tenderness. No peripheral edema. NEUROLOGICAL: Cranial nerves II-XII intact. Normal speech. Laboratory Results - last 24 hr 05/08/18 06:46 Urine HCG, Qual Negative ASSESSMENT/PLAN: 37 year-old female with a PMH significant for SLE, pancreatic insufficiency, Sjogrens disease, GERD, migraines, chronic pain, IBS, endometrosis, and major depressive disorder. She presents today for ECT. Cardiac --no cardiac history --Revised Cardiac Risk Index for Pre-Operative Risk: 0 points, 0.4% risk of major cardiac event Pulmonary --no pulmonary history Neurological --no neurological or neurosurgical history; no history of trauma Anesthesia --no reported problems with anesthesia ECT is a low risk procedure. The relative benefits of the planned procedure outweigh the relative risks for this patient at this time. Visit type - Emergency Visit Emergency Visit: No - New Patient This patient is new to me today: Yes Date on this admission: 05/08/18 - Critical Care Critical Care patient: No
[2018-05-08 09:04] VITALS: TEMP 98.3
[2018-05-08 09:16] VITALS: BP 117/71; PULSE 81
== END 2018-05-08 09:23 | disposition home or self-care (01) ==
LOC: FECT 05:51
PROVIDERS: ATTEND Psychiatry & Neurology Psychiatry
PROC: GZB4ZZZ Other Electroconvulsive Therapy (ICD-10-PCS; principal; 2018-05-08 07:45)
DX: F33.2 Major depressive disorder, recurrent severe without psychotic features (principal)
CPT/HCPCS: 84703; 90870; 94760